=== PATIENT | male | born 1950 | race Caucasian/White ===

== ENCOUNTER 2017-04-17 17:47 | Emergency (ER) | payer MEDICARE ==
--- NOTE | 2017-04-17 17:53 | UC ---
Dizzy HPI HPI Summary: 67 year old male with recent left ureter stent placement presents with complains of severe dizziness. - History Of Current Complaint Stated Complaint: DIZZINESS Time Seen by Provider: 04/17/17 17:53 Hx Obtained From: Patient Onset/Duration: Sudden Onset Timing: Constant Severity Initially: Moderate Severity Currently: Moderate Aggravating Factor(s): Nothing Alleviating Factor(s): Nothing - Allergies/Home Medications Allergies/Adverse Reactions: Allergies Allergy/AdvReac Type Severity Reaction Status Date / Time wool Allergy Intermediate Rash Uncoded 04/17/17 18:18 PMH/Surg Hx/FS Hx/Imm Hx Previously Healthy: Yes - Surgical History Surgical History: Yes Surgery Procedure, Year, and Place: HERNIA SURGERIES IN THE S Review of Systems Constitutional: Negative Skin: Negative Eyes: Negative ENT: Negative Respiratory: Negative Cardiovascular: Negative Gastrointestinal: Abdominal Pain, Nausea Genitourinary: Negative Motor: Negative Neurovascular: Negative Musculoskeletal: Negative Neurological: Headache Psychological: Negative All Other Systems Reviewed And Are Negative: Yes Physical Exam Triage Information Reviewed: Yes Vital Signs Reviewed: Yes Eye Exam: Normal ENT Exam: Normal Dental Exam: Normal Neck exam: Normal Respiratory Exam: Normal Cardiovascular Exam: Normal Abdominal Exam: Normal Musculoskeletal Exam: Normal Neurological Exam: Normal Psychological Exam: Normal Skin Exam: Normal Dizzy Course/Dx - Differential Dx/Diagnosis Provider Diagnoses: dizzines. abdominal pain. nausea Discharge - Discharge Plan Condition: Stable Disposition: HOME Patient Education Materials: Dizziness (ED) Referrals: Charlee Sadler NP [Nurse Practitioner] - Additional Instructions: patient suggested to go to the er
[2017-04-17 18:18] VITALS: BP 98/58
== END 2017-04-17 18:41 | disposition home or self-care (01) ==
LOC: UCCORT 17:47
DX: R42 Dizziness and giddiness (principal); R10.84 Generalized abdominal pain; R11.0 Nausea
CPT/HCPCS: 93005; 99212; G0463

== ENCOUNTER 2018-04-06 09:01 | Emergency (ER) | payer MEDICARE ==
[2018-04-06 09:27] VITALS: BP 150/82
--- NOTE | 2018-04-06 09:41 | UC ---
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 He states that he has had 3 doses as of this note. the red area in his R groin was outlined yesterday and today, " -here w/ his HODAN. -denies fevers, chills, rigors. no d/c. no streaks. - History of Current Complaint Chief Complaint: UCSkin Time Seen by Provider: 04/06/18 09:07 Stated Complaint: GROIN SKIN CONCERN Pain Intensity: 0 - Allergy/Home Medications Allergies/Adverse Reactions: Allergies Allergy/AdvReac Type Severity Reaction Status Date / Time No Known Allergies Allergy Verified 04/06/18 09:28 Home Medications: Home Medications Sulfamethox/Trimethoprim DS* [Bactrim DS 800/160 TAB*] 1 tab PO BID 04/06/18 [ History Confirmed 04/06/18] PMH/Surg Hx/FS Hx/Imm Hx Previously Healthy: Yes Endocrine History: Dyslipidemia Cardiovascular History: Hypertension - Surgical History Surgical History: Yes Surgery Procedure, Year, and Place: HERNIA SURGERIES IN THE 70'S - Family History Known Family History: Positive: Hypertension - Social History Alcohol Use: None Substance Use Type: None Smoking Status (MU): Heavy Every Day Tobacco Smoker Type: Cigarettes Amount Used/How Often: 2 ppd Length of Time of Smoking/Using Tobacco: since age 15 Have You Smoked in the Last Year: Yes Review of Systems All Other Systems Reviewed And Are Negative: Yes Constitutional: Positive: Negative Skin: Positive: Rash Eyes: Positive: Negative ENT: Positive: Negative Respiratory: Positive: Negative Cardiovascular: Positive: Negative Gastrointestinal: Positive: Negative Genitourinary: Positive: Negative Motor: Positive: Negative Neurovascular: Positive: Negative Musculoskeletal: Positive: Negative Neurological: Positive: Negative Psychological: Positive: Negative Is Patient Immunocompromised?: No Physical Exam Triage Information Reviewed: Yes Appearance: Well-Appearing, No Pain Distress, Well-Nourished Vital Signs: Initial Vital Signs Temp 98.7 F 04/06/18 09:18 Pulse 64 04/06/18 09:18 Resp 16 04/06/18 09:18 BP 150/82 04/06/18 09:18 Pulse Ox 99 04/06/18 09:18 Vital Signs Reviewed: Yes Eye Exam: Normal ENT Exam: Normal ENT: Positive: Pharynx normal, TMs normal. Negative: TM bulging, TM dull, TM red Neck exam: Normal Neck: Positive: Supple, Nontender, No Lymphadenopathy Respiratory Exam: Normal Respiratory: Positive: Lungs clear, Normal breath sounds, No respiratory distress, No accessory muscle use. Negative: Crackles, Rhonchi, Stridor, Wheezing Cardiovascular Exam: Normal Cardiovascular: Positive: RRR Abdominal Exam: Normal Abdomen Description: Positive: Nontender, Soft Bowel Sounds: Positive: Present Musculoskeletal Exam: Normal Neurological Exam: Normal Psychological Exam: Normal Skin: Positive: Rashes - right upper medial thigh with light pink erythema. cool to touch. extends midway down thigh that is beyond the sharpie line. no streaks, no d.c Re-Evaluation - Re-Evaluation First Eval Re-Evaluation Time: 10:20 - mo rash, bretahing issues or other c/o 20 mins s/p rocephin. Change: Unchanged Course/Dx - Course Course Of Treatment: -rocephin 1gm IM x1. -cont bactrim. -probiotic - Differential Diagnoses - Skin Complaint Differential Diagnoses: Cellulitis, Contact Dermatitis - Diagnoses Provider Diagnosis: Cellulitis Discharge - Sign-Out/Discharge Documenting (check all that apply): Patient Departure All imaging exams completed and their final reports reviewed: No Studies - Discharge Plan Condition: Stable Disposition: HOME Patient Education Materials: Cellulitis (ED) Referrals: Malgorzata Flynn MD [Primary Care Provider] - 2 Days Additional Instructions: Make sure to take a probiotic daily while on antibiotics to help prevent a potential complication of antibiotic use called c diff. Some well known brands that can be found OTC are florastor, align and HireAHelper. Make sure to complete the entire prescription unless advised otherwise by your health care provider. -You should go to the ER if your symptoms worsen or develop fevers, chills or shaking. - Billing Disposition and Condition Condition: STABLE Disposition: Home
[2018-04-06] MEDS ORDERED: cefTRIAXone VIAL(*) 1,000 MG VIAL IM ONE (09:49)
[2018-04-06] MEDS ORDERED: Lidocaine 1% MPF* 2 ML VIAL ONE (09:55)
== END 2018-04-06 10:35 | disposition home or self-care (01) ==
LOC: UCCORT 09:01
DX: L03.314 Cellulitis of groin (principal); I10 Essential (primary) hypertension; F17.210 Nicotine dependence, cigarettes, uncomplicated
CPT/HCPCS: 96372; 99212; G0463; J0696